=== PATIENT | female | born 1945 | race Caucasian/White ===

== ENCOUNTER → 2016-12-17 | Outpatient (CLI) | payer MEDICARE ==
--- NOTE | 2016-12-24 09:50 | RADIOLOGY REPORT PS360 ---
DIG MAMM-SCREEN [place] W/CAD DIG MAMM-SCREEN [place] W/CAD CAD Screening ORDERING PHYSICIAN : [facility] PATIENT AGE: 71 years GENDER: Female COMPARISON: Previous mammograms: September 2013, October INDICATION: Routine screening no hormones. No complaints. Previous cyst aspiration right breast. Family history. Mother & aunt with breast cancer in 70s.. Grandmother in her 60s TECHNIQUE: Standard CC and MLO images were obtained. R2 CAD reviewed. FINDINGS: Mild/Moderately dense breast bilaterally . Inhomogeneous scattered fibrolinear elements. No prominent new findings no architectural distortion nor dominant mass nor suspicious calcifications. . Areas of asymmetric density appear similar to prior studies follow-up in one year adequate CAD computer review highlights no areas of concern. RIGHT BREAST: Appearance at superior right breast appears stable since previous studies. Other areas of nodularity stable as well. LEFT BREAST: Areas density for example at lateral left breast is been present since studies dating back to at least 2013. No significant change IMPRESSION: Stable bilateral mammogram with no significant new findings. Moderately dense breast Would recommend an encourage ongoing annual follow-up in this patient with positive family history. Self breast examination in this particular patient, be encouraged as well BI-RADS CATEGORY: 2_Benign RECOMMENDED FOLLOWUP: 12M 12 MONTH FOLLOW-UP (A letter has been sent to the patient regarding results of the study.)
== END ==
LOC: RAD 15:45
DX: Z12.31 Encounter for screening mammogram for malignant neoplasm of breast (principal)
CPT/HCPCS: G0202

== ENCOUNTER → 2017-02-06 | Outpatient (CLI) | payer MEDICARE ==
[2017-02-06 11:58] LABS: BUN 28 mg/dL (7-18)
[2017-02-06 12:12] LABS: GFR (ESTIMATED) 44 ML/MIN (59-)
== END ==
LOC: LAB 10:17
PROVIDERS: Nurse Practitioner Family
DX: I10 Essential (primary) hypertension (principal); E78.2 Mixed hyperlipidemia; E03.9 Hypothyroidism, unspecified